=== PATIENT | male | born 1950 | race Native Hawaiian/Other Pacific Islander ===

== ENCOUNTER 2017-02-10 19:26 | Inpatient (IN) | payer OTHER ==
[~2017-02-10] VITALS: Ht 182.9 cm; Wt 121.3 kg
[2017-02-10 19:45] VITALS: BP 170/95; TEMP 99.2
[2017-02-10 20:41] LABS: PLATELET COUNT 327 K/uL (142-355)
[2017-02-10 20:51] LABS: POTASSIUM 3.8 mmol/L (3.6-5.2)
[2017-02-10 22:54] VITALS: BP 140/73; TEMP 98.1; Ht 182.9 cm; Wt 121.3 kg
[2017-02-11] VITALS: BP 142/74; TEMP 97.5
[2017-02-11] MEDS ORDERED: METFTAB PO (00:40)
[2017-02-11] MEDS ORDERED: GLIM4TAB PO (00:41)
[2017-02-11] MEDS ORDERED: AMLO2.5T PO (00:41)
[2017-02-11] MEDS ORDERED: ATEN50TA36 PO (00:42)
[2017-02-11] MEDS ORDERED: DIOVAN HCT320 MG/25 PO (00:43)
[2017-02-11] MEDS ORDERED: GLYXAMBI 10-5 M1 TAB PO (00:43)
[2017-02-11 04:00] VITALS: BP 109/65; TEMP 97.6
[2017-02-11 04:58] LABS: PLATELET COUNT 323 K/uL (142-355)
[2017-02-11 05:17] LABS: POTASSIUM 3.7 mmol/L (3.6-5.2)
[2017-02-11 08:00] VITALS: BP 119/71; TEMP 98.4
[2017-02-11 12:00] VITALS: BP 134/81; TEMP 98.69
[2017-02-11 16:00] VITALS: BP 116/73; TEMP 98.4
[2017-02-11 20:00] VITALS: BP 140/86; TEMP 98.1
[2017-02-12 00:14] VITALS: BP 120/70; TEMP 98.1
[2017-02-12 04:00] VITALS: BP 109/65; TEMP 98.2
[2017-02-12 05:08] LABS: PLATELET COUNT 281 K/uL (142-355)
[2017-02-12 05:20] LABS: POTASSIUM 3.9 mmol/L (3.6-5.2)
[2017-02-12 08:00] VITALS: BP 104/65; TEMP 97.7
[2017-02-12 12:00] VITALS: BP 106/60; TEMP 98.7
[2017-02-12 16:00] VITALS: BP 120/72; TEMP 98
--- NOTE | 2017-02-12 16:30 | NUR ---
IV SITES D/C'D WITH TIPS INTACT AND SITE CARE DONE. PT AWATING D/C
--- NOTE | 2017-02-12 17:00 | NUR ---
D/C INSTRUCTIONS GIVEN TO PT AND HE VERBALIZES UNDERSTANDING. PT AWAITING TRANSPORTATION
--- NOTE | 2017-02-12 17:23 | NUR ---
PT AMBULATORY OUT WITH NAD. ACCOMPANIED PER KYLE CURRIE.
== END 2017-02-12 16:45 | disposition home or self-care (01) | DRG 638 ==
LOC: ED 19:26 → MED/SURG 20:54
PROVIDERS: ADMIT Specialist
DX: E11.69 Type 2 diabetes mellitus with other specified complication (principal); M86.172 Other acute osteomyelitis, left ankle and foot; L03.032 Cellulitis of left toe; E79.0 Hyperuricemia without signs of inflammatory arthritis and tophaceous disease; I10 Essential (primary) hypertension; E11.42 Type 2 diabetes mellitus with diabetic polyneuropathy
CPT/HCPCS: 36415; 80048; 80053; 81000; 82948; 83036; 83735; 84550; 85027; 85651; 86140; 87070; 87205; 96365; 96372; 99284; A9576; J1644; J3490; Q9963

== ENCOUNTER 2017-05-13 10:18 | Outpatient (CLI) | payer OTHER ==
[~2017-05-13 10:18] MED LIST: AMLO2.5T PO; ATEN50TA36 PO; DIOVAN HCT320 MG/25 PO; GLIM4TAB PO; GLYXAMBI 10-5 M1 TAB PO; METFTAB PO
== END 2017-05-13 11:30 | disposition home or self-care (01) ==
LOC: MRI 10:18
DX: M86.179 Other acute osteomyelitis, unspecified ankle and foot (principal)
CPT/HCPCS: 82565; 84520; A9576

== ENCOUNTER 2018-11-09 10:27 | Outpatient (CLI) | payer OTHER ==
[2018-11-09 10:50] LABS: PLATELET COUNT 293 K/uL (142-355)
== END 2018-11-09 23:28 | disposition home or self-care (01) ==
LOC: LABW 10:27
PROVIDERS: Nurse Practitioner
DX: E55.9 Vitamin D deficiency, unspecified (principal); E11.9 Type 2 diabetes mellitus without complications; I10 Essential (primary) hypertension; E78.00 Pure hypercholesterolemia, unspecified; E53.8 Deficiency of other specified B group vitamins; R53.83 Other fatigue; Z12.5 Encounter for screening for malignant neoplasm of prostate
CPT/HCPCS: 36415; 80053; 80061; 82043; 82306; 82570; 82607; 83036; 84154; 85027

== ENCOUNTER 2019-08-31 09:01 | Outpatient (CLI) | payer OTHER | END 2019-08-31 20:08 | disposition home or self-care (01) | LOC: RAD 09:01 | DX: M54.2 Cervicalgia (principal) ==

== ENCOUNTER 2020-04-18 14:29 | Outpatient (CLI) | payer OTHER ==
[2020-04-18 14:55] LABS: PLATELET COUNT 253 K/uL (142-355)
[2020-04-18 15:43] LABS: POTASSIUM 4.4 mmol/L (3.6-5.2)
== END 2020-04-18 19:24 | disposition home or self-care (01) ==
LOC: LAB 14:29
PROVIDERS: Nurse Practitioner Family
DX: I10 Essential (primary) hypertension (principal); E11.9 Type 2 diabetes mellitus without complications; M19.90 Unspecified osteoarthritis, unspecified site; Z12.5 Encounter for screening for malignant neoplasm of prostate; E55.9 Vitamin D deficiency, unspecified; M54.2 Cervicalgia; G62.89 Other specified polyneuropathies; Z79.899 Other long term (current) drug therapy; E53.8 Deficiency of other specified B group vitamins
CPT/HCPCS: 80053; 80061; 82306; 82607; 83036; 84439; 84443; 84481; 85027

== ENCOUNTER 2020-07-14 09:14 | Outpatient (CLI) | payer OTHER | END 2020-07-14 18:56 | disposition home or self-care (01) | LOC: MRI 09:14 | PROVIDERS: ATTEND Surgery | DX: L97.518 Non-pressure chronic ulcer of other part of right foot with other specified severity (principal) | CPT/HCPCS: 36415; 82565; 84520; A9576 ==

== ENCOUNTER 2021-01-18 10:17 | Outpatient (CLI) | payer OTHER | END 2021-01-18 22:43 | disposition home or self-care (01) | LOC: RAD 10:17 | PROVIDERS: ATTEND Nurse Practitioner Family | DX: M79.671 Pain in right foot (principal) ==

== ENCOUNTER 2022-05-23 09:26 | Outpatient (CLI) | payer OTHER | END 2022-05-23 19:40 | disposition home or self-care (01) | LOC: RAD 09:26 | PROVIDERS: ATTEND Nurse Practitioner Family | DX: M25.561 Pain in right knee (principal) ==

== ENCOUNTER 2022-09-10 11:19 | Outpatient (CLI) | payer OTHER ==
[2022-09-10 11:59] LABS: PLATELET COUNT 313 K/uL (142-355)
[2022-09-10 13:02] LABS: POTASSIUM 4.5 mmol/L (3.6-5.2)
== END 2022-09-10 19:21 | disposition home or self-care (01) ==
LOC: LABW 11:19
PROVIDERS: ATTEND Internal Medicine
DX: E11.22 Type 2 diabetes mellitus with diabetic chronic kidney disease (principal); N18.32 Chronic kidney disease, stage 3b; M10.09 Idiopathic gout, multiple sites
CPT/HCPCS: 36415; 80053; 81002; 82043; 82306; 82330; 82570; 82955; 83036; 83735; 83970; 84100; 84156; 84439; 84443; 84550; 85027; 85041; 85652; 86038